=== PATIENT | male | born 1990 | race Caucasian/White ===

== ENCOUNTER 2018-12-28 17:17 | Emergency (ER) | payer OTHER ==
[2018-12-28 17:28] VITALS: BP 137/89
[2018-12-28] MEDS ORDERED: oxyCODONE 5 MG TABLET PO STA (17:53)
[2018-12-28] MEDS ORDERED: CYCLOBENZAPRINE 10 MG TABLET PO STA (17:53)
--- NOTE | 2018-12-28 19:18 | XRAY Report ---
Reason: L shoulder pain while pulling Procedure Date: 12/28/2018 Accession Number: [id number] / [id number] Procedure: XR - Shoulder 3 View LT CPT Code: FULL RESULT: EXAM: LEFT SHOULDER RADIOGRAPHY EXAM DATE: 12/28/2018 06:45 PM. CLINICAL HISTORY: Left shoulder pain while pulling. COMPARISON: None. TECHNIQUE: 3 views. FINDINGS: Bones: Normal. No fracture or bone lesion. Joints: The glenohumeral and acromioclavicular joints are normal. Soft tissues: The visualized hemithorax is unremarkable. No soft tissue swelling. IMPRESSION: Normal shoulder radiography. [facility]
--- NOTE | 2018-12-28 19:24 | ED Physician Documentation ---
PD HPI UPPER EXT INJURY - Stated complaint Stated Complaint: LT SHOULDER PX/INJ - Chief complaint Chief Complaint: Ext Problem - History obtained from History obtained from: Patient - History of Present Illness Location: Left, Shoulder Type of injury: Other (Patient states originally injured the left shoulder and by writing on a ladder fell on him. He then had another injury a week ago pulling on something. Today he was sitting up in bed and felt a pop. Increased pain since that time.) Timing - onset: Today Timing - duration: Days (1) Timing - details: Abrupt onset Pain level max: 10 Pain level now: 8 Improved by: Rest, Ice, Immobilization Worsened by: Moving, Palpating Associated symptoms: Swelling. No: Weakness, Numbness, Tingling Contributing factors: No: Anticoagulated, Prior ortho surgery Recently seen: Not recently seen - Additonal information Additional information: Patient is left-handed Review of Systems Constitutional: denies: Fever, Chills Respiratory: denies: Cough GI: denies: Nausea, Vomiting, Diarrhea Skin: denies: Rash PD PAST MEDICAL HISTORY - Past Medical History Past Medical History: No - Past Surgical History Past Surgical History: No - Present Medications Home Medications: Ambulatory Orders Medication Instructions Recorded Confirmed Cyclobenzaprine [Flexeril] 10 mg PO TID PRN #20 tablet 12/28/18 Meloxicam [Mobic] 15 mg PO DAILY PRN #20 tablet 12/28/18 Oxycodone HCl/Acetaminophen 1 - 2 each PO Q6H PRN #14 tablet 12/28/18 [Percocet 5-325 mg Tablet] - Allergies Allergies/Adverse Reactions: Allergies Allergy/AdvReac Type Severity Reaction Status Date / Time No Known Drug Allergies Allergy Verified 12/28/18 17:27 - Social History Does the pt smoke?: No Smoking Status: Never smoker PD ED PE NORMAL - Vitals Vital signs reviewed: Yes - General General: Alert and oriented X 3, No acute distress - HEENT HEENT: Moist mucous membranes - Neck Neck: Supple, no meningeal sign - Derm Derm: Warm and dry - Extremities Extremities: Other (L shoulder - diffuse TTP. NVI. limited ROM in all directions 2/2 pain. pain with internal and external rotation. pain with abduction.) - Neuro Neuro: Alert and oriented X 3 Results - Vitals Vitals: Vital Signs - 24 hr 12/28/18 17:24 Temperature 36.4 C L Heart Rate 75 Respiratory 19 Rate Blood Pressure 137/89 H O2 Saturation 100 Oxygen O2 Source Room air - Rads (name of study) L shoulder xray Radiology: Prelim report reviewed, EMP read contemporaneously, See rad report (Normal shoulder radiography. ) PD MEDICAL DECISION MAKING - ED course Complexity details: reviewed results, re-evaluated patient, considered differential, d/w patient ED course: Pt with L shoulder injury. Poss rotator cuff injury. Normal xray. Will place on pain meds and muscle relaxants. Encouraged gentle stretching and early ROM. Will follow up with PCP and [facility]. Patient counseled regarding signs and symptoms for which I believe and urgent re-evaluation would be necessary. Patient with good understanding of and agreement to plan and is comfortable going home at this time This document was made in part using voice recognition software. While efforts are made to proofread this document, sound alike and grammatical errors may occur. Departure - Departure Disposition: 01 Home, Self Care Clinical Impression: Rotator cuff injury Qualifiers: Encounter type: initial encounter Laterality: left Qualified Code(s): S46.002A - Unspecified injury of muscle(s) and tendon(s) of the rotator cuff of left shoulder, initial encounter Condition: Good Instructions: ED Tendinitis Rotator Cuff Follow-Up: your,doctor in 1 week [Other] Prescriptions: Cyclobenzaprine [Flexeril] 10 mg PO TID PRN #20 tablet PRN Reason: Spasms Meloxicam [Mobic] 15 mg PO DAILY PRN #20 tablet PRN Reason: pain Oxycodone HCl/Acetaminophen [Percocet 5-325 mg Tablet] 1 - 2 each PO Q6H PRN #14 tablet PRN Reason: pain Comments: Appears that you have injured your rotator cuff today. Use the medications as prescribed. Return if you worsen. Follow-up with orthopedics for further care. You can get a brace on [employer] for the rotator cuff. You can use the sling for the next 2 to 3 days. Do not use it longer than this. You need to continue to range your shoulder as we discussed today to prevent a frozen shoulder. Do not drink alcohol or drive while on narcotic pain medicine. Note that many narcotic pain relievers also contain tylenol/acetaminophen. Please ensure that your total dose of acetaminophen from all sources does not exceed 3 grams (3000mg) per day. You may constipated on this medication, take a stool softener such as "Colace" twice a day while you are on it. Also recommend a [id number] laxative such as senna or MiraLAX any day that you do not have a bowel movement. If you received narcotic pain medication in the emergency department, do not drive or operate machinery for the next 24 hours. Discharge Date/Time: 12/28/18 19:38
== END 2018-12-28 19:38 | disposition home or self-care (01) ==
LOC: ED 17:17
DX: S46.002A Unspecified injury of muscle(s) and tendon(s) of the rotator cuff of left shoulder, initial encounter (principal); X50.0XXA Overexertion from strenuous movement or load, initial encounter; Y93.89 Activity, other specified; Y99.0 Civilian activity done for income or pay
CPT/HCPCS: 99283; 99284